=== PATIENT | female | born 1995 | race American Indian/Alaskan Native ===

== ENCOUNTER 2020-04-11 09:46 | Emergency (ER) | payer SELFPAY ==
[2020-04-11 09:52] VITALS: BP 129/73
--- NOTE | 2020-04-11 10:38 | XRay Report ---
CHEST 2 VIEWS INDICATION / CLINICAL INFORMATION: right sided chest pain. COMPARISON: None available. FINDINGS: SUPPORT DEVICES: None. HEART / MEDIASTINUM: No significant abnormality. LUNGS / PLEURA: No significant pulmonary or pleural abnormality. No pneumothorax. ADDITIONAL FINDINGS: No significant additional findings. IMPRESSION: 1. No acute findings. Signer Name: Wili Kasper MD Signed: 04/11/2020 10:34 AM Workstation Name: [id number]
[2020-04-11] MEDS ORDERED: HYDROcodone/ACETAMINOPHEN 5-325 MG TAB PO ONE (10:57)
[2020-04-11] MEDS ORDERED: ONDANSETRON 4 MG ODT TAB PO ONE (10:57)
--- NOTE | 2020-04-11 11:06 | Emergency Department Report ---
ED Abdominal Pain HPI - General Chief Complaint: Pain General Stated Complaint: RIB PAIN Time Seen by Provider: 04/11/20 10:19 Source: patient Mode of arrival: Ambulatory Limitations: No Limitations - History of Present Illness Initial Comments: Patient is a 24-year-old female presents emergency room with complaints of right upper quadrant abdominal pain that began at 5 AM this morning. She states that she feels a sharp stabbing pain. She denies ever having this pain in the past. She denies any nausea, vomiting, diarrhea, fever, urinary symptoms, abnormal vaginal discharge, cough, SOB, CP. She states the pain is worse with movement. She denies any past medical history. No allergies to medications. She is currently on her menstrual cycle. - Related Data Previous Rx's Medication Instructions Recorded Last Taken Type Naproxen [EC-Naprosyn] 500 mg PO BID PRN #14 tablet. 04/11/20 Unknown Rx Ondansetron [Zofran Odt] 4 mg PO Q8HR PRN #7 tab.rapdis 04/11/20 Unknown Rx cephALEXin [Keflex] 500 mg PO BID 7 Days #14 cap 04/11/20 Unknown Rx Allergies Allergy/AdvReac Type Severity Reaction Status Date / Time No Known Allergies Allergy Unverified 04/11/20 09:48 ED Review of Systems ROS: Stated complaint: RIB PAIN Other details as noted in HPI Comment: All other systems reviewed and negative ED Past Medical Hx - Past Medical History Previous Medical History?: Yes Additional medical history: anemia - Surgical History Past Surgical History?: No - Social History Smoking Status: Current Every Day Smoker Substance Use Type: Alcohol - Medications Home Medications: Home Medications Medication Instructions Recorded Confirmed Last Taken Type Naproxen [EC-Naprosyn] 500 mg PO BID PRN #14 tablet. 04/11/20 Unknown Rx Ondansetron [Zofran Odt] 4 mg PO Q8HR PRN #7 tab.rapdis 04/11/20 Unknown Rx cephALEXin [Keflex] 500 mg PO BID 7 Days #14 cap 04/11/20 Unknown Rx ED Physical Exam - General Limitations: No Limitations General appearance: alert, in no apparent distress - Head Head exam: Present: atraumatic, normocephalic - Eye Eye exam: Present: normal appearance - ENT ENT exam: Present: mucous membranes moist - Respiratory Respiratory exam: Present: normal lung sounds bilaterally. Absent: respiratory distress, wheezes, rales, rhonchi, stridor, chest wall tenderness, accessory muscle use, decreased breath sounds, prolonged expiratory - Cardiovascular Cardiovascular Exam: Present: regular rate, normal rhythm, normal heart sounds. Absent: systolic murmur, diastolic murmur, rubs, gallop - GI/Abdominal GI/Abdominal exam: Present: soft, tenderness (RUQ), normal bowel sounds. Absent: distended, guarding, rebound, rigid - Neurological Exam Neurological exam: Present: alert, oriented X3 - Psychiatric Psychiatric exam: Present: normal affect, normal mood - Skin Skin exam: Present: warm, dry, intact ED Course Vital Signs 04/11/20 09:48 Temperature 98.7 F Pulse Rate 99 H Respiratory 18 Rate Blood Pressure 129/73 O2 Sat by Pulse 99 Oximetry ED Medical Decision Making - Lab Data Result diagrams: 04/11/20 12:03 04/11/20 12:03 Lab Results 04/11/20 04/11/20 04/11/20 Range/Units 12:03 12:03 Unknown WBC 9.4 (4.5-11.0) K/mm3 RBC 4.56 (3.65-5.03) M/mm3 Hgb 10.5 (10.1-14.3) gm/dl Hct 33.3 (30.3-42.9) % MCV 73 L (79-97) fl MCH 23 L (28-32) pg MCHC 32 (30-34) % RDW 19.2 H (13.2-15.2) % Plt Count 254 (140-440) K/mm3 Lymph % (Auto) 15.1 (13.4-35.0) % [place] % (Auto) 8.3 H (0.0-7.3) % Eos % (Auto) 0.2 (0.0-4.3) % Baso % (Auto) 0.2 (0.0-1.8) % Lymph # (Auto) 1.4 (1.2-5.4) K/mm3 [place] # (Auto) 0.8 (0.0-0.8) K/mm3 Eos # (Auto) 0.0 (0.0-0.4) K/mm3 Baso # (Auto) 0.0 (0.0-0.1) K/mm3 Seg Neutrophils % 76.2 H (40.0-70.0) % Seg Neutrophils # 7.2 (1.8-7.7) K/mm3 Sodium 136 L (137-145) mmol/L Potassium 3.5 L (3.6-5.0) mmol/L Chloride 101.1 (98-107) mmol/L Carbon Dioxide 27 (22-30) mmol/L Anion Gap 11 mmol/L BUN 6 L (7-17) mg/dL Creatinine 0.4 L (0.6-1.2) mg/dL Estimated GFR > 60 ml/min BUN/Creatinine Ratio 15 % Glucose 92 (65-100) mg/dL Calcium 8.7 (8.4-10.2) mg/dL Total Bilirubin 0.40 (0.1-1.2) mg/dL AST 11 (5-40) units/L ALT 9 (7-56) units/L Alkaline Phosphatase 45 (35-129) units/L Total Protein 7.1 (6.3-8.2) g/dL Albumin 3.8 L (3.9-5) g/dL Albumin/Globulin Ratio 1.2 % Lipase 13 (13-60) units/L Urine Color Yellow (Yellow) Urine Turbidity Clear (Clear) Urine pH 7.0 (5.0-7.0) Ur Specific [place] 1.020 (1.003-1.030) Urine Protein <15 mg/dl (Negative) mg/dL Urine Glucose (UA) Neg (Negative) mg/dL Urine Ketones Neg (Negative) mg/dL Urine Blood Lg (Negative) Urine Nitrite Neg (Negative) Urine Bilirubin Neg (Negative) Urine Urobilinogen 2.0 (<2.0) mg/dL Ur Leukocyte Esterase Tr (Negative) Urine WBC (Auto) 9.0 H (0.0-6.0) /HPF Urine RBC (Auto) > 182.0 (0.0-6.0) /HPF U Epithel Cells (Auto) 4.0 (0-13.0) /HPF Urine Mucus 2+ /HPF Urine HCG, Qual Negative (Negative) Vital Signs 04/11/20 09:48 Temperature 98.7 F Pulse Rate 99 H Respiratory 18 Rate Blood Pressure 129/73 O2 Sat by Pulse 99 Oximetry - Radiology Data Radiology results: report reviewed Ordering Physician: KARLIE LAWTON Date of Service: 04/11/20 Procedure(s): XR chest routine 2V Accession Number(s): [id number] cc: KARLIE LAWTON Fluoro Time In Minutes: CHEST 2 VIEWS INDICATION / CLINICAL INFORMATION: right sided chest pain. COMPARISON: None available. FINDINGS: SUPPORT DEVICES: None. HEART / MEDIASTINUM: No significant abnormality. LUNGS / PLEURA: No significant pulmonary or pleural abnormality. No pneumothorax. ADDITIONAL FINDINGS: No significant additional findings. IMPRESSION: 1. No acute findings. Signer Name: Wili Myers MD Signed: 04/11/2020 10:34 AM Workstation Name: [id number] Transcribed By: Dictated By: WILI MYERS Electronically Authenticated By: WILI MYERS Signed Date/Time: 04/11/20 1034 DD/ 1032 TD/TT: Ordering Physician: MIRIAM BAILEY Date of Service: 04/11/20 Procedure(s): US abdomen complete Accession Number(s): [id number] cc: MIRIAM BAILEY ULTRASOUND ABDOMEN, COMPLETE INDICATION: RUQ and epigastric abd pain. COMPARISON: No relevant prior imaging study available. FINDINGS: Pancreas: No significant abnormality. Abdominal Aorta: No significant abnormality. IVC: No significant abnormality. Liver: No significant abnormality. Gallbladder: No significant abnormality. Bile ducts: No significant abnormality. Common bile duct measures 2 mm. Kidneys: Right: No significant abnormality. Left : No significant abnormality. Spleen: No significant abnormality. Free fluid: None. Additional Findings: None. IMPRESSION: 1. No sonographic abnormality of the abdomen. Signer Name: Musa Kolb MD Signed: 04/11/2020 12:27 PM Workstation Name: [id number] Transcribed By: DC Dictated By: Musa Kolb MD Electronically Authenticated By: Musa Kolb MD Signed Date/Time: 04/11/20 1227 DD/ 1225 TD/TT: - Medical Decision Making Patient is a 24-year-old female presents emergency room with complaints of right upper quadrant abdominal pain that began at 5 AM this morning. She states that she feels a sharp stabbing pain. She denies ever having this pain in the past. She denies any nausea, vomiting, diarrhea, fever, urinary symptoms, abnormal v aginal discharge, cough, SOB, CP. She states the pain is worse with movement. She denies any past medical history. No allergies to medications. She is currently on her menstrual cycle. Vitals are normal. On exam mild right upper quadrant tenderness, no guarding, no rebound, no rigidity, normal bowel sounds, no peritoneal signs, negative Ley sign. Labs are stable. UA shows many red blood cells secondary to patient's menstrual cycle, her also a small amount of white blood cells and leukocyte esterase. CXR ordered prior to my examination and CXR: 1. No acute findings. abd US: 1. No sonographic abnormality of the abdomen. Patient given medications while in the emergency department and symptoms improved and she was feeling much better ready to go home. Discussed all results with patient and answered questions. Patient is PERC criteria negative for PE, PE unlikely. Patient given prescription for naproxen, Zofran, Keflex. Advised patient Please take medication as prescribed. Increase your water intake. Follow-up with your primary care doctor for reexamination. Return to emergency room for any new or worsening symptoms. - Differential Diagnosis Cholelithiasis, cholecystitis, PUD, GERD, gas pain, UTI, dysmenorrhea, PNA Critical care attestation.: If time is entered above; I have spent that time in minutes in the direct care of this critically ill patient, excluding procedure time. ED Disposition Clinical Impression: Abdominal pain Qualifiers: Abdominal location: right upper quadrant Qualified Code(s): R10.11 - Right upp er quadrant pain UTI (urinary tract infection) Qualifiers: Urinary tract infection type: acute cystitis Hematuria presence: with hematuria Qualified Code(s): N30.01 - Acute cystitis with hematuria Disposition: - TO HOME OR SELFCARE Is pt being admited?: No Does the pt Need Aspirin: No Condition: Stable Instructions: Urinary Tract Infection, Adult, [id number], Abdominal Pain, Adult, [id number] Additional Instructions: Please take medication as prescribed. Increase your water intake. Follow-up with your primary care doctor for reexamination. Return to emergency room for any new or worsening symptoms. Prescriptions: Naproxen [EC-Naprosyn] 500 mg PO BID PRN #14 tablet.dr PISANO Reason: pain cephALEXin [Keflex] 500 mg PO BID 7 Days #14 cap Ondansetron [Zofran Odt] 4 mg PO Q8HR PRN #7 tab.rapdis PRN Reason: Nausea And Vomiting Referrals: PRIMARY CAREMD [Primary Care Provider] - 2-3 Days DOMINIQUE POLLOCK MD [Staff Physician] - 2-3 Days [facility] [Provider Group] - 2-3 Days Time of Disposition: 12:43 Print Language: GREEK
[2020-04-11 11:24] LABS: Bilirubin,Urine NEG (Negative); Blood,Urine LG (Negative); Color,Urine Yellow (Yellow); Mucus,Urine 2+ /HPF; Protein,Urine <15 mg/dL mg/dL (Negative)
[2020-04-11 11:25] LABS: HCG Qualitative,Urine Negative (Negative); RBC,Urine > 182.0 /HPF (0.0-6.0)
[2020-04-11 12:16] LABS: Basophils % (Auto) 0.2 % (0.0-1.8); Eosinophils % (Auto) 0.2 % (0.0-4.3); Hematocrit 33.3 % (30.3-42.9); Hemoglobin 10.5 gm/dl (10.1-14.3); Lymphocytes # (Auto) 1.4 K/mm3 (1.2-5.4); Lymphocytes % (Auto) 15.1 % (13.4-35.0); Mean Corpuscular HGB Conc 32 % (30-34); Mean Corpuscular Volume 73 fl (79-97); Monocytes # (Auto) 0.8 K/mm3 (0.0-0.8); Monocytes % (Auto) 8.3 % (0.0-7.3); Platelet Count 254 K/mm3 (140-440); Red Blood Count 4.56 M/mm3 (3.65-5.03); Red Cell Distribution Width 19.2 % (13.2-15.2)
--- NOTE | 2020-04-11 12:31 | Ultrasound Report ---
ULTRASOUND ABDOMEN, COMPLETE INDICATION: RUQ and epigastric abd pain. COMPARISON: No relevant prior imaging study available. FINDINGS: Pancreas: No significant abnormality. Abdominal Aorta: No significant abnormality. IVC: No significant abnormality. Liver: No significant abnormality. Gallbladder: No significant abnormality. Bile ducts: No significant abnormality. Common bile duct measures 2 mm. Kidneys: Right: No significant abnormality. Left : No significant abnormality. Spleen: No significant abnormality. Free fluid: None. Additional Findings: None. IMPRESSION: 1. No sonographic abnormality of the abdomen. Signer Name: Musa Kolb MD Signed: 04/11/2020 12:27 PM Workstation Name: [id number]
[2020-04-11 12:37] LABS: Alanine Aminotransferase 9 units/L (7-56); Albumin 3.8 g/dL (3.9-5); Blood Urea Nitrogen 6 mg/dL (7-17); Calcium 8.7 mg/dL (8.4-10.2); Hemolysis Index 10
[2020-04-11 12:38] LABS: BUN/Creatinine Ratio 15
== END 2020-04-11 13:05 | disposition home or self-care (01) ==
LOC: ED 09:46
DX: N39.0 Urinary tract infection, site not specified (principal); F17.200 Nicotine dependence, unspecified, uncomplicated; Z79.899 Other long term (current) drug therapy
CPT/HCPCS: 36415; 71046; 76700; 80053; 81001; 81025; 83690; 85025; 87086; Q0162

== ENCOUNTER 2020-10-06 12:31 | Emergency (ER) | payer MEDICAID ==
[2020-10-06] MEDS ORDERED: HYDROcodone/ACETAMINOPHEN 5-325 MG TAB PO ONE (13:17)
--- NOTE | 2020-10-06 13:29 | Emergency Department Report ---
ED ENT HPI - General Chief complaint: Dental/Oral Stated complaint: SWOLLEN FACE, HEADACHE Time Seen by Provider: 10/06/20 13:10 Source: patient Mode of arrival: Ambulatory Limitations: No Limitations - History of Present Illness Initial comments: Patient is a 25-year-old female presents emergency room with complaints of right upper dental pain that began yesterday. She states that she began having right upper facial swelling yesterday. She denies any fever, nausea, vomiting, diarrhea, difficulty swallowing, difficulty breathing. She states that she last saw dentist approximately a year ago. She states that she had a dental abscess at that time and was supposed to follow-up after antibiotics for tooth extraction but she never followed up. No past medical history. No allergies to medications. Last menstrual cycle 2 weeks ago. - Related Data Previous Rx's Medication Instructions Recorded Last Taken Type Naproxen [EC-Naprosyn] 500 mg PO BID PRN #14 tablet. 04/11/20 Unknown Rx Ondansetron [Zofran Odt] 4 mg PO Q8HR PRN #7 tab.rapdis 04/11/20 Unknown Rx cephALEXin [Keflex] 500 mg PO BID 7 Days #14 cap 04/11/20 Unknown Rx Clindamycin [Clindamycin CAP] 450 mg PO TID 7 Days #21 capsule 10/06/20 Unknown Rx Ibuprofen [Motrin 600 MG tab] 600 mg PO Q8H PRN #20 tablet 10/06/20 Unknown Rx Ondansetron [Zofran Odt] 4 mg PO Q8HR PRN #12 tab.rapdis 10/06/20 Unknown Rx Penicillin Vk [Veetids TAB] 500 mg PO QID 7 Days #56 tablet 10/06/20 Unknown Rx traMADoL [Ultram 50 MG tab] 50 mg PO Q6HR PRN #12 tablet 10/06/20 Unknown Rx Allergies Allergy/AdvReac Type Severity Reaction Status Date / Time No Known Allergies Allergy Unverified 04/11/20 09:48 ED Dental HPI - General Chief complaint: Dental/Oral Stated complaint: SWOLLEN FACE, HEADACHE Time Seen by Provider: 10/06/20 13:10 Source: patient Mode of arrival: Ambulatory Limitations: No Limitations - Related Data Previous Rx's Medication Instructions Recorded Last Taken Type Naproxen [EC-Naprosyn] 500 mg PO BID PRN #14 tablet. 04/11/20 Unknown Rx Ondansetron [Zofran Odt] 4 mg PO Q8HR PRN #7 tab.rapdis 04/11/20 Unknown Rx cephALEXin [Keflex] 500 mg PO BID 7 Days #14 cap 04/11/20 Unknown Rx Clindamycin [Clindamycin CAP] 450 mg PO TID 7 Days #21 capsule 10/06/20 Unknown Rx Ibuprofen [Motrin 600 MG tab] 600 mg PO Q8H PRN #20 tablet 10/06/20 Unknown Rx Ondansetron [Zofran Odt] 4 mg PO Q8HR PRN #12 tab.rapdis 10/06/20 Unknown Rx Penicillin Vk [Veetids TAB] 500 mg PO QID 7 Days #56 tablet 10/06/20 Unknown Rx traMADoL [Ultram 50 MG tab] 50 mg PO Q6HR PRN #12 tablet 10/06/20 Unknown Rx Allergies Allergy/AdvReac Type Severity Reaction Status Date / Time No Known Allergies Allergy Unverified 04/11/20 09:48 ED Review of Systems ROS: Stated complaint: SWOLLEN FACE, HEADACHE Other details as noted in HPI Comment: All other systems reviewed and negative ED Past Medical Hx - Past Medical History Previous Medical History?: No Additional medical history: anemia - Surgical History Past Surgical History?: No - Social History Smoking Status: Current Every Day Smoker Substance Use Type: Alcohol - Medications Home Medications: Home Medications Medication Instructions Recorded Confirmed Last Taken Type Naproxen [EC-Naprosyn] 500 mg PO BID PRN #14 tablet. 04/11/20 Unknown Rx Ondansetron [Zofran Odt] 4 mg PO Q8HR PRN #7 tab.rapdis 04/11/20 Unknown Rx cephALEXin [Keflex] 500 mg PO BID 7 Days #14 cap 04/11/20 Unknown Rx Clindamycin [Clindamycin CAP] 450 mg PO TID 7 Days #21 capsule 10/06/20 Unknown Rx Ibuprofen [Motrin 600 MG tab] 600 mg PO Q8H PRN #20 tablet 10/06/20 Unknown Rx Ondansetron [Zofran Odt] 4 mg PO Q8HR PRN #12 tab.rapdis 10/06/20 Unknown Rx Penicillin Vk [Veetids TAB] 500 mg PO QID 7 Days #56 tablet 10/06/20 Unknown Rx traMADoL [Ultram 50 MG tab] 50 mg PO Q6HR PRN #12 tablet 10/06/20 Unknown Rx ED Physical Exam - General Limitations: No Limitations General appearance: alert, in no apparent distress - Head Head exam: Present: atraumatic, normocephalic - Eye Eye exam: Present: normal appearance - ENT ENT exam: Present: normal orophraynx (no tongue elevation, no muffled voice, no submandibular edema), mucous membranes moist, other (right lower molar dental carries, right upper molar dental carries, there is edema present to the right upper gumline, there is edema present to the right maxillary region, no crepitus, no erythema or increased warmth of the face, uvula is midline, no uvular edema or deviation, no trismus) - Respiratory Respiratory exam: Absent: respiratory distress, accessory muscle use - Neurological Exam Neurological exam: Present: alert, oriented X3 - Psychiatric Psychiatric exam: Present: normal affect, normal mood - Skin Skin exam: Present: warm, dry, intact ED Course Vital Signs 10/06/20 10/06/20 12:59 13:56 Temperature 100.2 F H 99.4 F Pulse Rate 100 H 94 H Respiratory 16 16 Rate Blood Pressure 129/91 Blood Pressure 120/75 [Left] O2 Sat by Pulse 100 100 Oximetry ED Medical Decision Making - Lab Data Vital Signs 10/06/20 10/06/20 12:59 13:56 Temperature 100.2 F H 99.4 F Pulse Rate 100 H 94 H Respiratory 16 16 Rate Blood Pressure 129/91 Blood Pressure 120/75 [Left] O2 Sat by Pulse 100 100 Oximetry - Medical Decision Making Patient is a 25-year-old female presents emergency room with complaints of right upper dental pain that began yesterday. She states that she began having right upper facial swelling yesterday. She denies any fever, nausea, vomiting, diarrhea, difficulty swallowing, difficulty breathing. She states that she last saw dentist approximately a year ago. She states that she had a dental abscess at that time and was supposed to follow-up after antibiotics for tooth extraction but she never followed up. No past medical history. No allergies to medications. Last menstrual cycle 2 weeks ago. Initial vitals with mild low- grade fever, patient states that she does not feel like she has a fever. On exam:right lower molar dental carries, right upper molar dental carries, there is edema present to the right upper gumline, there is edema present to the right maxillary region, no crepitus, no erythema or increased warmth of the face, uvula is midline, no uvular edema or deviation, no trismus, no tongue elevation, no muffled voice, no submandibular edema. Examination appears consistent with dental abscess and mild early facial cellulitis. No signs of Mike's or facial abscess at this time. Patient given prescription for medications. Advised patient Please take medication as prescribed. Please follow-up with a dentist. It is very important that you follow-up. Return to emergency room for new or worsening symptoms. discussed strict return precautions with pt. Critical care attestation.: If time is entered above; I have spent that time in minutes in the direct care of this critically ill patient, excluding procedure time. ED Disposition Clinical Impression: Dental abscess, Dental caries Disposition: TO HOME OR SELFCARE Is pt being admited?: No Does the pt Need Aspirin: No Condition: Stable Instructions: Dental Abscess Additional Instructions: Please take medication as prescribed. Please follow-up with a dentist. It is very important that you follow-up. Return to emergency room for new or worsening symptoms. Prescriptions: Clindamycin [Clindamycin CAP] 450 mg PO TID 7 Days #21 capsule Ibuprofen [Motrin 600 MG tab] 600 mg PO Q8H PRN #20 tablet PRN Reason: Pain traMADoL [Ultram 50 MG tab] 50 mg PO Q6HR PRN #12 tablet PRN Reason: Pain , Severe (7-10) Penicillin Vk [Veetids TAB] 500 mg PO QID 7 Days #56 tablet Ondansetron [Zofran Odt] 4 mg PO Q8HR PRN #12 tab.rapdis PRN Reason: nausea/vomiting Referrals: [facility] [Outside] - 2-3 Days [facility] [Outside] - 2-3 Days Time of Disposition: 13:40 Print Language: FRISIAN
[2020-10-06 13:57] VITALS: BP 120/75
== END 2020-10-06 14:51 | disposition home or self-care (01) ==
LOC: ED 12:31
DX: K02.9 Dental caries, unspecified (principal); K04.7 Periapical abscess without sinus; D64.9 Anemia, unspecified; F17.200 Nicotine dependence, unspecified, uncomplicated; Z79.899 Other long term (current) drug therapy
CPT/HCPCS: 99282